=== PATIENT | female | born 1985 | race Caucasian/White ===

== ENCOUNTER 2018-03-19 17:07 | Outpatient (CLI) | payer OTHER ==
[2018-03-19 17:48] LABS: ADD MAN DIFF? NO
[2018-03-19 17:49] LABS: WHITE BLOOD COUNT 7.6 10^3/ul (4.8-10.8)
[2018-03-19 17:49] LABS: BASOPHILS % 0.3 % (0.0-2.0); EOSINOPHILS % 0.5 % (0.0-7.0); HEMATOCRIT 36.3 % (37.0-47.0); HEMOGLOBIN 12.4 g/dl (12.0-16.0); LYMPHOCYTES # 1.4 10^3/ul (0.8-2.9); LYMPHOCYTES % 17.7 % (15.0-51.0); MEAN CORPUSCULAR HEMOGLOBIN 31.6 pg (29.0-33.0); MEAN CORPUSCULAR HGB CONC 34.2 g/dl (32.0-37.0); MEAN CORPUSCULAR VOLUME 92.6 fl (82.0-101.0); MEAN PLATELET VOLUME 10.8 fl (7.4-10.4); MONOCYTE # 0.4 10^3/ul (0.3-0.9); MONOCYTES % 5.8 % (0.0-11.0); NEUTROPHIL # 5.7 10^3/ul (1.6-7.5); PLATELET COUNT 182 10^3/UL (140-415); RED BLOOD COUNT 3.92 10^6/ul (4.20-5.40); RED CELL DISTRIBUTION WIDTH 12.5 % (11.5-14.5)
[2018-03-19 17:54] LABS: ADD UMIC YES; UR ASCORBIC ACID 20 mg/dL (NEGATIVE); UR BACTERIA FEW /HPF (NONE SEEN); UR BILIRUBIN (Dip) NEGATIVE (NEGATIVE); UR BLOOD (Dip) NEGATIVE (NEGATIVE); UR CLARITY SLIGHTLY CLOUDY (CLEAR); UR COLOR YELLOW (YELLOW); UR GLUCOSE (Dip) 1+ mg/dL (NEGATIVE); UR KETONES (Dip) NEGATIVE (NEGATIVE); UR LEUKOCYTE ESTERASE (Dip) 1+ Leu/ul (NEGATIVE); UR MUCUS FEW /HPF (NONE SEEN); UR NITRITE (Dip) NEGATIVE (NEGATIVE); UR RBC 1 /HPF (0-5); UR SPECIFIC GRAVITY (Dip) 1.016 (1.003-1.030); UR SQUAMOUS EPITHELIAL CELL MODERATE /HPF (FEW); UR TOTAL PROTEIN (Dip) NEGATIVE (NEGATIVE); UR UROBILINOGEN (Dip) NEGATIVE (NEGATIVE); UR WBC 1 /HPF (0-5)
[2018-03-19 18:07] LABS: ALANINE AMINOTRANSFERASE 11 IU/L (13-69); ALBUMIN 2.9 g/dl (3.3-4.9); ALBUMIN/GLOBULIN RATIO 0.85; ALKALINE PHOSPHATASE 113 IU/L (42-121); ANION GAP 9 (5-13); ASPARTATE AMINO TRANSFERASE 22 IU/L (15-46); BILIRUBIN,INDIRECT 0.1 mg/dl (0-1.1); BILIRUBIN,TOTAL 0.1 mg/dl (0.2-1.3); BLOOD UREA NITROGEN 6 mg/dl (7-20); CARBON DIOXIDE 20 mmol/L (21-31); CHLORIDE 108 mmol/L (97-110); CREATININE 0.46 mg/dl (0.44-1.00); GLUCOSE 119 mg/dl (70-220); POTASSIUM 3.7 mmol/L (3.5-5.1); SODIUM 137 mmol/L (135-144); TOTAL PROTEIN 6.3 g/dl (6.1-8.1); URIC ACID 2.6 mg/dl (3.1-7.9)
[2018-03-19 18:12] LABS: Estimated GFR > 60 mL/min (>60)
== END 2018-03-19 20:00 | disposition home or self-care (01) ==
LOC: OBT 17:07 → L-D 17:07 → OBT 20:00
DX: O26.893 Other specified pregnancy related conditions, third trimester (principal); R51 Headache; Z3A.38 38 weeks gestation of pregnancy
CPT/HCPCS: 76815; 76818; 80053; 81001; 84560; 85025

== ENCOUNTER 2018-03-29 07:57 | Inpatient (IN) | payer OTHER ==
[2018-03-29] MEDS ORDERED: CARBOPROST 250 MCG INJ IM (08:30)
[2018-03-29] MEDS ORDERED: LIDOCAINE 1% (MPF) 30 ML INJ INJ (08:30)
[2018-03-29] MEDS ORDERED: IBUPROFEN 600 MG TAB PO (08:30)
[2018-03-29] MEDS ORDERED: BUTORPHANOL 2 MG INJ IV (08:30)
[2018-03-29] MEDS ORDERED: OXYTOCIN 30 UNITS/LR 500 ML IV ×2 (08:30)
[2018-03-29 09:26] LABS: ADD MAN DIFF? NO
[2018-03-29 09:30] LABS: BASOPHILS % 0.2 % (0.0-2.0); EOSINOPHILS % 0.4 % (0.0-7.0); HEMATOCRIT 38.5 % (37.0-47.0); LYMPHOCYTES # 1.6 10^3/ul (0.8-2.9); LYMPHOCYTES % 16.4 % (15.0-51.0); MEAN CORPUSCULAR HEMOGLOBIN 31.4 pg (29.0-33.0); MEAN CORPUSCULAR HGB CONC 33.8 g/dl (32.0-37.0); MEAN PLATELET VOLUME 11.5 fl (7.4-10.4); MONOCYTE # 0.4 10^3/ul (0.3-0.9); MONOCYTES % 4.3 % (0.0-11.0); NEUTROPHIL # 7.4 10^3/ul (1.6-7.5); NEUTROPHILS % 78.2 % (39.0-77.0); PLATELET COUNT 192 10^3/UL (140-415); RED BLOOD COUNT 4.14 10^6/ul (4.20-5.40); RED CELL DISTRIBUTION WIDTH 12.7 % (11.5-14.5)
[2018-03-29 09:30] LABS: WHITE BLOOD COUNT 9.5 10^3/ul (4.8-10.8)
[2018-03-29 09:55] LABS: INR 0.93; PROTIME 12.6 Sec (11.9-14.9)
[2018-03-29 09:56] LABS: PARTIAL THROMBOPLASTIN TIME 26.4 Sec (23.0-35.0)
[2018-03-29 10:16] LABS: HEPATITIS B SURFACE ANTIGEN NEGATIVE (NEGATIVE)
[2018-03-29] MEDS: MISOPROSTOL 50 MCG CAPSULE PO ×4 (10:23→22:39)
[2018-03-29] MEDS: LACTATED RINGER'S 1,000 ML IV* ×3 (10:23→22:39)
[2018-03-29 16:23] LABS: RAPID PLASMA REAGIN NONREACTIVE (NR)
[2018-03-30] MEDS: MISOPROSTOL 50 MCG CAPSULE PO ×2 (02:49→06:46)
[2018-03-30] MEDS: LACTATED RINGER'S 1,000 ML IV* ×3 (06:11→21:11)
[2018-03-30] MEDS: OXYTOCIN 30 UNITS/LR 500 ML IV (10:01)
[2018-03-31] MEDS: ACETAMINOPHEN 325 MG TAB PO ×3 (00:51→23:20)
[2018-03-31] MEDS: LACTATED RINGER'S 1,000 ML IV* ×4 (04:35→17:00)
[2018-03-31] MEDS ORDERED: METHYLERGONOVINE 0.2 MG INJ (07:00)
[2018-03-31] MEDS ORDERED: FENTAnyl 2MCG/ML-ROPIV 0.2% 100 ML (09:30)
[2018-03-31] MEDS ORDERED: NALOXONE (0.4 MG/ML) INJ IV (10:00)
[2018-03-31] MEDS: FENTAnyl 2MCG/ML-ROPIV 0.2% 100 ML BAG EPI ×2 (16:39→17:45)
[2018-03-31] MEDS ORDERED: DIPHENHYDRAMINE 50 MG INJ IV (17:00)
[2018-03-31] MEDS ORDERED: SOD CHLORIDE 0.9% 1,000 ML IV (17:00)
[2018-03-31] MEDS: MINERAL OIL LIGHT 10 ML VIAL TOP (20:00)
[2018-03-31] MEDS: LIDOCAINE 0.5% (SDV) 50 ML INJ INFIL (20:00)
[2018-03-31] MEDS: DEXTROSE 5%-LR 1,000 ML IV (20:22)
[2018-03-31] MEDS: OXYTOCIN 30 UNITS/LR 500 ML IV ×2 (22:10→23:05)
[2018-03-31] MEDS: METHYLERGONOVINE 0.2 MG INJ IM (22:35)
[2018-03-31] MEDS: MISOPROSTOL 200 MCG TAB PR (22:48)
[2018-03-31] MEDS ORDERED: ONDANSETRON 4 MG INJ (23:39)
[2018-03-31] MEDS: ONDANSETRON 4 MG INJ IV (23:53)
[2018-04-01] MEDS ORDERED: OXYTOCIN 30 UNITS/LR 500 ML IV (01:00)
[2018-04-01] MEDS ORDERED: WITCH HAZEL/GLYCERIN PAD PR (01:00)
[2018-04-01] MEDS ORDERED: DIBUCAINE 1% 30 GM OINT TOP (01:00)
[2018-04-01] MEDS ORDERED: LANOLIN 7 GM TUBE TOP (01:00)
[2018-04-01] MEDS ORDERED: MISOPROSTOL 200 MCG TAB PR (01:00)
[2018-04-01] MEDS ORDERED: CARBOPROST 250 MCG INJ IM (01:00)
[2018-04-01] MEDS ORDERED: METHYLERGONOVINE 0.2 MG INJ IM (01:00)
[2018-04-01] MEDS ORDERED: BENZOCAINE 20% 56 ML SPRAY TOP (01:00)
[2018-04-01] MEDS: LACTATED RINGER'S 1,000 ML IV* ×4 (02:20→19:30)
[2018-04-01] MEDS: LIDOCAINE 0.5% (SDV) 50 ML INJ INFIL (02:31)
[2018-04-01] MEDS: HYDROCODONE/APAP (5/325) TAB PO (04:02)
[2018-04-01] MEDS: IBUPROFEN 600 MG TAB PO ×3 (05:26→17:40)
[2018-04-01 08:17] LABS: ADD MAN DIFF? NO
[2018-04-01 08:21] LABS: BASOPHILS % 0.2 % (0.0-2.0); EOSINOPHILS % 0.2 % (0.0-7.0); HEMATOCRIT 35.8 % (37.0-47.0); HEMOGLOBIN 12.3 g/dl (12.0-16.0); LYMPHOCYTES # 1.4 10^3/ul (0.8-2.9); LYMPHOCYTES % 11.6 % (15.0-51.0); MEAN CORPUSCULAR HEMOGLOBIN 31.9 pg (29.0-33.0); MEAN CORPUSCULAR HGB CONC 34.4 g/dl (32.0-37.0); MEAN PLATELET VOLUME 11.8 fl (7.4-10.4); MONOCYTE # 0.7 10^3/ul (0.3-0.9); MONOCYTES % 5.4 % (0.0-11.0); NEUTROPHIL # 10.3 10^3/ul (1.6-7.5); NEUTROPHILS % 82.3 % (39.0-77.0); PLATELET COUNT 163 10^3/UL (140-415); RED BLOOD COUNT 3.85 10^6/ul (4.20-5.40); RED CELL DISTRIBUTION WIDTH 12.4 % (11.5-14.5)
[2018-04-01 08:21] LABS: WHITE BLOOD COUNT 12.5 10^3/ul (4.8-10.8)
[2018-04-01] MEDS: SENNA/DOCUSATE NA (8.6MG/50MG) TAB PO ×2 (08:34→22:48)
[2018-04-01 10:49] LABS: RHOGAM PROFILE 1 1
[2018-04-01] MEDS: INFLUENZA VIRUS VACCINE 0.5 ML (DISPENSING) IM* (17:41)
[2018-04-02] MEDS: IBUPROFEN 600 MG TAB PO ×4 (00:24→17:44)
[2018-04-02] MEDS: LACTATED RINGER'S 1,000 ML IV* (08:47)
[2018-04-02] MEDS: SENNA/DOCUSATE NA (8.6MG/50MG) TAB PO (09:15)
[2018-04-02] MEDS: DIPHTH/TET/ACEL PERTUSS (ADULT) 0.5 ML VIAL IM* (09:16)
[2018-04-02] MEDS: ACETAMINOPHEN 325 MG TAB PO (09:20)
== END 2018-04-02 18:30 | disposition home or self-care (01) | DRG 807 ==
LOC: L-D 07:57 → PP1 04-01 00:38
PROVIDERS: Obstetrics & Gynecology
PROC: 3E033VJ Introduction of Other Hormone into Peripheral Vein, Percutaneous Approach (ICD-10-PCS; 2018-03-29)
PROC: 10E0XZZ Delivery of Products of Conception, External Approach (ICD-10-PCS; principal; 2018-03-31)
PROC: 0KQM0ZZ Repair Perineum Muscle, Open Approach (ICD-10-PCS; 2018-03-31)
DX: O70.1 Second degree perineal laceration during delivery (principal); Z37.0 Single live birth; Z3A.39 39 weeks gestation of pregnancy
CPT/HCPCS: 62319; 76815; 76818; 85025; 85610; 85730; 86592; 86850; 86870; 86885; 86900; 86901; 87340; 90686; 90715; 99464